=== PATIENT | female | born 1965 | race Caucasian/White ===

== ENCOUNTER 2016-10-10 10:33 | Observation (INO) | payer BC ==
[2016-10-10] MEDS ORDERED: ASPIRIN 81 MG TABLET, CHEWABLE PO ONE (10:48)
--- NOTE | 2016-10-10 10:48 | ER Document Report ---
ED Medical Screen (RME) - General Chief Complaint: Chest Pain > 30 Stated Complaint: SHOULDER PAIN Time seen by provider: 10:45 Mode of Arrival: Ambulatory Information source: Patient Notes: 51-year-old smoker female complaining of weakness, chest and left neck and arm tightness since she woke up. History of borderline diabetes, hypertension, hyper lipidemia. Strong family history of coronary artery disease and a brother had quadruple bypass at age 52. - Related Data Allergies/Adverse Reactions: No Known Allergies Allergy (Verified 10/10/16 10:45) Past Medical History Endocrine Medical History: Reports: Hx Diabetes Mellitus Type 2 - borderline Past Surgical History: Reports: Hx Tubal Ligation
[2016-10-10] MEDS ORDERED: ASPIRIN 81 MG TABLET, CHEWABLE ONE (10:50)
[2016-10-10 11:36] LABS: ABSOLUTE EOSINOPHILS # (AUTO) 0.1 10^3/uL (0.0-0.6); ABSOLUTE LYMPHOCYTES (AUTO) 2.3 10^3/uL (0.5-4.7); ABSOLUTE MONOCYTES (AUTO) 0.7 10^3/uL (0.1-1.4); ABSOLUTE NEUT (AUTO) 3.7 10^3/uL (1.7-8.2); BASOPHILS % (AUTO) 0.7 % (0-2); EOSINOPHILS % (AUTO) 1.6 % (0-6); HEMATOCRIT 45.7 % (36.0-47.0); HEMOGLOBIN 14.9 g/dL (12.0-15.5); LYMPHOCYTES % (AUTO) 33.6 % (13-45); MEAN CORPUSCULAR HEMOGLOBIN 30.5 pg (27.0-33.4); MEAN CORPUSCULAR HGB CONC 32.6 g/dL (32.0-36.0); MEAN CORPUSCULAR VOLUME 94 fl (80-97); MONOCYTES % (AUTO) 9.5 % (3-13); RED BLOOD COUNT 4.88 10^6/uL (3.72-5.28); SEGMENTED NEUTROPHILS % (AUTO) 54.6 % (42-78); WHITE BLOOD COUNT 6.9 10^3/uL (4.0-10.5)
[2016-10-10 11:57] LABS: ALANINE AMINOTRANSFERASE 109 U/L (9-52); ALBUMIN 4.4 g/dL (3.5-5.0); ALKALINE PHOSPHATASE 89 U/L (38-126); ANION GAP 15 (5-19); ASPARTATE AMINO TRANSFERASE 90 U/L (14-36); BILIRUBIN,TOTAL 0.6 mg/dL (0.2-1.3); BLOOD UREA NITROGEN 15 mg/dL (7-20); CALCIUM 9.8 mg/dL (8.4-10.2); CARBON DIOXIDE 27 mmol/L (22-30); CHLORIDE 101 mmol/L (98-107); CREATINE KINASE 139 U/L (30-135); CREATININE RESULT 0.65 mg/dL (0.52-1.25); GLUCOSE 147 mg/dL (75-110); POTASSIUM 3.8 mmol/L (3.6-5.0); SODIUM 142.7 mmol/L (137-145); TOTAL PROTEIN 7.7 g/dL (6.3-8.2)
[2016-10-10 12:08] LABS: CREATINE KINASE MB 2.75 ng/mL (<4.55)
[2016-10-10 12:10] LABS: TROPONIN I < 0.012 ng/mL
--- NOTE | 2016-10-10 13:05 | ER Document Report ---
ED Cardiac - General Chief Complaint: Chest Pain > 30 Stated Complaint: SHOULDER PAIN Time seen by provider: 12:50 Mode of Arrival: Ambulatory Notes: Patient is a 51-year-old female presents emergency department with complaints of chest tightness, shortness of breath, nausea, lightheadedness, and general malaise. Symptoms started around 9 or 10:00 this morning. Symptoms have been intermittent. She states she feels a tightness around her chest like her bra was too tight. She states that she has changed her bra twice states this has not made a difference. She states she thinks she is having a panic attack but denies having increased anxiety before onset of symptoms. She does note a strong family history for premature heart disease. She has not had cardiac evaluation previously. She was previously diagnosed with high blood pressure but states that after taking the medication for one month, she did not tolerate the side effects and told her primary care doctor that she was not going to take it anymore. She denies any exacerbating or alleviating factors for her symptoms. - Related Data Allergies/Adverse Reactions: No Known Allergies Allergy (Verified 10/10/16 10:45) Home Medications: Current Home Medications Fluoxetine HCl [Prozac 20 mg Capsule] 20 mg PO ASDIR PRN 10/10/16 [History] Past Medical History - General Information source: Patient - Social History Smoking Status: Current Every Day Smoker Chew tobacco use (# tins/day): No Frequency of alcohol use: None Drug Abuse: None Family History: CAD, Other - son -Schizophrenia Patient has suicidal ideation: No Patient has homicidal ideation: No Endocrine Medical History: Reports: Hx Diabetes Mellitus Type 2 - borderline Renal/ Medical History: Denies: Hx Peritoneal Dialysis Past Surgical History: Reports: Hx Tubal Ligation - Immunizations Hx Diphtheria, Pertussis, Tetanus Vaccination: No Review of Systems - Review of Systems Constitutional: Malaise. denies: Fever EENT: denies: Nose congestion Cardiovascular: Chest pain Respiratory: Cough, Short of breath Gastrointestinal: Nausea. denies: Abdominal pain, Diarrhea Genitourinary: denies: Dysuria Musculoskeletal: denies: Back pain Skin: denies: Rash Neurological/Psychological: denies: Headaches -: Yes All other systems reviewed and negative Physical Exam - Vital signs Vitals: Temp Pulse Resp BP Pulse Ox 98.3 F 85 16 149/88 H 96 10/10/16 10:45 10/10/16 10:45 10/10/16 10:45 10/10/16 10:45 10/10/16 10:45 - Notes Notes: PHYSICAL EXAMINATION: GENERAL: Well-appearing, well-nourished and in no acute distress. HEAD: Atraumatic, normocephalic. EYES: sclera anicteric, conjunctiva are normal. ENT: Moist mucous membranes. NECK: supple LUNGS: Breath sounds clear to auscultation bilaterally and equal. No wheezes rales or rhonchi. HEART: Regular rate and rhythm without murmurs. No chest wall tenderness to palpation ABDOMEN: Soft, nontender, normoactive bowel sounds. No guarding, no rebound. No masses appreciated. EXTREMITIES: Normal range of motion, no pitting or edema. No cyanosis. No calf tenderness to palpation. 2+ pulses. NEUROLOGICAL: Cranial nerves grossly intact. Normal speech, Normal strength PSYCH: Normal mood, normal affect. SKIN: Warm, Dry, no rashes or lesions noted. Course - Re-evaluation Re-evalutation: 10/10/16 Patient presents with multiple complaints including chest tightness. EKG does not show evidence of acute ischemia. She does have a family history of premature heart disease and has not had heart attack evaluation previously herself. Given her complaints of chest tightness, shortness of breath, nausea, and lightheadedness, do think she warrants hospitalization for further evaluation. Case is discussed with Dr. Hutchison and Dr. Elizabeth, hospitalists, who accepted patient to her service. Patient and family verbalized understanding of plan and are in agreement. - Vital Signs Vital signs: Temp Pulse Resp BP Pulse Ox 97.8 F 57 L 16 110/61 98 10/10/16 17:16 10/10/16 17:16 10/10/16 17:16 10/10/16 17:16 10/10/16 17:16 - Laboratory Result Diagrams: 10/10/16 11:15 10/10/16 11:15 Laboratory results interpreted by me: 10/10/16 11:15 Glucose 147 H AST 90 H ALT 109 H Creatine Kinase 139 H - Diagnostic Test Radiology reviewed: Image reviewed, Reports reviewed - EKG Interpretation by Me EKG shows normal: Sinus rhythm, [place], Intervals, QRS Complexes, ST-T Waves Rate: Normal Rhythm: NSR When compared to previous EKG there are: No significant change Discharge - Discharge Clinical Impression: Tobacco abuse Chest pain Qualifiers: Chest pain type: unspecified Qualified Code(s): R07.9 - Chest pain, unspecified Disposition: ADMITTED OBSERVATION Admitting Provider: Hospitalist Unit Admitted: Telemetry
[2016-10-10] MEDS ORDERED: ENOXAPARIN SODIUM INJ 40 MG/0.4 ML DISP.SYRIN SUBCUT ONE ×2 (15:00→20:45)
--- NOTE | 2016-10-10 15:33 | PDOC H&P ---
History of Present Illness Admission Date/PCP: [facility] 10/10/16 Patient complains of: Chest pain History of Present Illness: CAROLINE OTT is a 51 year old female Presented to the ED with a history of chest pain Chest pain was precordial ,intermittent, pressure-like not associated with exertion The pain started this morning; when interviewed patient states she's pain-free Patient also states that she was a little confused when she got the pain She had no fever no chills no cough no nausea vomiting She was brought to the ED for evaluation EKG was unremarkable, troponin was normal; She was subsequently admitted under hospitalist service for observation Past Medical History Cardiac Medical History: Reports: None Endocrine Medical History: Reports: Diabetes Mellitus Type 2 - borderline Past Surgical History Past Surgical History: Reports: Tubal Ligation Social History Smoking Status: Current Every Day Smoker Frequency of Alcohol Use: Social Amount of Alcoholic Beverages Per Day: 1-3 Hx Recreational Drug Use: No Family History Family History: CAD, Other - son -Schizophrenia Parental Family History Reviewed: Yes - coronary artery disease Children Family History Reviewed: No Sibling(s) Family History Reviewed.: Yes - Coronary artery disease Medication/Allergy Home Medications: Fluoxetine HCl [Prozac 20 mg Capsule] 20 mg PO ASDIR PRN 10/10/16 Allergies/Adverse Reactions: No Known Allergies Allergy (Verified 10/10/16 10:45) Review of Systems Constitutional: ABSENT: chills, fever(s), headache(s), weight gain, weight loss Eyes: ABSENT: visual disturbances Ears: ABSENT: hearing changes Cardiovascular: PRESENT: as per HPI, chest pain, dyspnea on exertion. ABSENT: edema, orthropnea, palpitations Respiratory: ABSENT: cough, hemoptysis Gastrointestinal: ABSENT: abdominal pain, constipation, diarrhea, hematemesis, hematochezia, nausea, vomiting Genitourinary: ABSENT: dysuria, hematuria Musculoskeletal: ABSENT: joint swelling Integumentary: ABSENT: rash, wounds Neurological: ABSENT: abnormal gait, abnormal speech, confusion, dizziness, focal weakness, syncope Psychiatric: ABSENT: anxiety, depression, homidical ideation, suicidal ideation Endocrine: ABSENT: cold intolerance, heat intolerance, polydipsia, polyuria Hematologic/Lymphatic: ABSENT: easy bleeding, easy bruising Physical Exam Vital Signs: Temp Pulse Resp BP Pulse Ox 98.3 F 81 17 123/70 96 10/10/16 10:50 10/10/16 11:10 10/10/16 12:00 10/10/16 11:10 10/10/16 12:00 Intake & Output 10/09/16 10/10/16 10/11/16 00:59 00:59 00:59 Weight 72.7 kg General appearance: PRESENT: no acute distress, well-developed, well-nourished Head exam: PRESENT: atraumatic, normocephalic Eye exam: PRESENT: conjunctiva pink, EOMI, PERRLA. ABSENT: scleral icterus Ear exam: PRESENT: normal external ear exam Mouth exam: PRESENT: moist, tongue midline Neck exam: ABSENT: carotid bruit, JVD, lymphadenopathy, thyromegaly Respiratory exam: PRESENT: clear to auscultation yana. ABSENT: rales, rhonchi, wheezes Cardiovascular exam: PRESENT: RRR. ABSENT: diastolic murmur, rubs, systolic murmur Pulses: PRESENT: normal dorsalis pedis pul Vascular exam: PRESENT: normal capillary refill GI/Abdominal exam: PRESENT: normal bowel sounds, soft. ABSENT: distended, guarding, mass, organolmegaly, rebound, tenderness Rectal exam: PRESENT: deferred Extremities exam: PRESENT: full ROM. ABSENT: calf tenderness, clubbing, pedal edema Neurological exam: PRESENT: alert, awake, oriented to person, oriented to place , oriented to time, oriented to situation, CN II-XII grossly intact. ABSENT: motor sensory deficit Psychiatric exam: PRESENT: appropriate affect, normal mood. ABSENT: homicidal ideation, suicidal ideation Skin exam: PRESENT: dry, intact, warm. ABSENT: cyanosis, rash Results Laboratory Results: 10/10/16 11:15 10/10/16 11:15 10/10/16 10/10/16 11:15 11:15 WBC 6.9 RBC 4.88 Hgb 14.9 Hct 45.7 MCV 94 MCH 30.5 MCHC 32.6 RDW 13.0 Plt Count 284 Seg Neutrophils % 54.6 Lymphocytes % 33.6 Monocytes % 9.5 Eosinophils % 1.6 Basophils % 0.7 Absolute Neutrophils 3.7 Absolute Lymphocytes 2.3 Absolute Monocytes 0.7 Absolute Eosinophils 0.1 Absolute Basophils 0.0 Sodium 142.7 Potassium 3.8 Chloride 101 Carbon Dioxide 27 Anion Gap 15 BUN 15 Creatinine 0.65 Est GFR ( Amer) > 60 Est GFR (Non-Af Amer) > 60 Glucose 147 H Calcium 9.8 Total Bilirubin 0.6 AST 90 H ALT 109 H Alkaline Phosphatase 89 Total Protein 7.7 Albumin 4.4 10/10/16 10/10/16 11:15 11:15 Creatine Kinase 139 H CK-MB (CK-2) 2.75 Troponin I < 0.012 Impressions: Chest X-Ray 10/10/16 10:48 IMPRESSION: NO ACUTE RADIOGRAPHIC FINDING IN THE CHEST. Assessment & Plan - Diagnosis (1) Chest pain Qualifiers: Chest pain type: unspecified Qualified Code(s): R07.9 - Chest pain, unspecified Is this a current diagnosis for this admission?: YesPlan: Patient has a strong family history for coronary artery disease She is a smoker We will monitor her overnight, obtain serial EKGs and cardiac enzymes Patient will be scheduled for stress testing as an outpatient next week Fasting lipids and TSH hemoglobin A1c will be obtained patient will be started tonight on Lipitor and aspirin We will schedule the patient for CTA of the chest to exclude pulmonary embolism (2) Tobacco abuse Is this a current diagnosis for this admission?: YesPlan: We will order a nicotine patch (3) Elevated LFTs Is this a current diagnosis for this admission?: YesPlan: We will obtain a in ultrasound of the gallbladder in a.m. This could be an atypical presentation of gallbladder disease - Time Time Spent: 50 to 70 Minutes
--- NOTE | 2016-10-10 16:41 | EKG REPORT ---
SEVERITY:- ABNORMAL ECG - SINUS RHYTHM PROBABLE LVH WITH SECONDARY REPOL ABNRM : Confirmed by: Wild Meza MD 10-Oct-2016 16:41:16
[2016-10-10] MEDS ORDERED: ATORVASTATIN CALCIUM 20 MG TABLET PO SCH (22:00)
[2016-10-11 07:13] LABS: ALANINE AMINOTRANSFERASE 106 U/L (9-52); ALBUMIN 4.8 g/dL (3.5-5.0); ALKALINE PHOSPHATASE 77 U/L (38-126); ANION GAP 12 (5-19); ASPARTATE AMINO TRANSFERASE 64 U/L (14-36); BILIRUBIN,TOTAL 0.7 mg/dL (0.2-1.3); BLOOD UREA NITROGEN 13 mg/dL (7-20); CALCIUM 10.2 mg/dL (8.4-10.2); CARBON DIOXIDE 27 mmol/L (22-30); CHLORIDE 105 mmol/L (98-107); CHOLESTEROL 298.16 mg/dL (0-200); CREATININE RESULT 0.64 mg/dL (0.52-1.25); Direct HDL 49 mg/dL (>40); GLUCOSE 98 mg/dL (75-110); POTASSIUM 4.7 mmol/L (3.6-5.0); TOTAL PROTEIN 7.5 g/dL (6.3-8.2); TRIGLYCERIDES 251 mg/dL (<150)
[2016-10-11 07:24] LABS: DIRECT LDL 234 mg/dL (<100)
[2016-10-11 07:27] LABS: VLDL CHOLESTEROL 50.2 mg/dL (10-31)
[2016-10-11] MEDS ORDERED: ENOXAPARIN SODIUM INJ 40 MG/0.4 ML DISP.SYRIN SUBCUT SCH (08:00)
[2016-10-11] MEDS ORDERED: ASPIRIN 325 MG TABLET, ENT COATED PO SCH (10:00)
--- NOTE | 2016-10-11 10:07 | EKG REPORT ---
SEVERITY:- NORMAL ECG - SINUS RHYTHM : Confirmed by: Wild Meza MD 11-Oct-2016 10:06:22
[2016-10-11] MEDS ORDERED: CLINDAMYCIN HCL 150 MG CAPSULE PO ONE (10:30)
[2016-10-11 10:43] LABS: FREE T3 3.71 pg/mL (2.77-5.27)
[2016-10-11 12:17] VITALS: BP 120/77
--- NOTE | 2016-10-11 13:29 | PDOC DISCHARGE SUMMARY ---
General - Admit/Disc Date/PCP Admission Date/Primary Care Provider: 10/10/16 14:13 Discharge Date: 10/11/16 - Discharge Diagnosis (1) Chest pain Is this a current diagnosis for this admission?: YesSummary: intermittent Patient was admitted overnite , monitered no arrhythmias, troponins were normal range EKG NSR CTA chest was negative for PE (2) Tobacco abuse Is this a current diagnosis for this admission?: Yes (3) Fatty liver disease, nonalcoholic Is this a current diagnosis for this admission?: YesSummary: with mildly elevated LFT'S advised lowfat diet Vitamin E 400 units daily (4) Mediastinal mass Is this a current diagnosis for this admission?: YesSummary: seen on CTA chest described as peripherally calcified, well circumscribed located in anterior mediastinum differential diagnosis : teratoma, Thymoma , Thymic Ca recommend PET CT Case was discussed with Dr Carvajal cardiothoracic surgeon at [facility] see patient in office and complete wup as outpatient (5) Hyperlipidemia Is this a current diagnosis for this admission?: YesSummary: initiated lipitor and [id number] acid - Additional Information Resuscitation Status: Full Code Discharge Diet: Cardiac, Other (Comments) - strict low fat diet Discharge Activity: Activity As Tolerated Home Medications: Acidoph/L.bulg/Bif.b/S.thermop [Bacid Caplet] 1 each PO BID #20 tablet 10/11/16 Atorvastatin Calcium [Lipitor 20 mg Tablet] 20 mg PO QHS #30 tablet 10/11/16 Clindamycin HCl [Cleocin 300 mg Capsule] 300 mg PO TID #30 capsule 10/11/16 Fluoxetine HCl [Prozac 20 mg Capsule] 20 mg PO DAILY #30 10/11/16 [place]-3S/Dha/Epa/Fish Oil [Fish Oil [place]-3 Softgel] 1 each PO BID #60 capsule. 10/11/16 Vitamin E 400 unit PO DAILY #30 capsule 10/11/16 History of Present Illness Patient complains of: chest pain History of Present Illness: CAROLINE OTT is a 51 year old female Presented to the ED with a history of chest pain Chest pain was precordial ,intermittent, pressure-like not associated with exertion The pain started this morning; when interviewed patient states she's pain-free Patient also states that she was a little confused when she got the pain She had no fever no chills no cough no nausea vomiting She was brought to the ED for evaluation EKG was unremarkable, troponin was normal; She was subsequently admitted under hospitalist service for observation Hospital Course Hospital Course: see above Physical Exam Vital Signs: Temp Pulse Resp BP Pulse Ox 97.9 F 65 18 120/77 95 10/11/16 12:12 10/11/16 12:12 10/11/16 12:12 10/11/16 12:12 10/11/16 12:12 Intake & Output 10/10/16 10/11/16 10/12/16 00:59 00:59 00:59 Intake Total 0 Balance 0 Weight 72.7 kg General appearance: PRESENT: no acute distress, well-developed, well-nourished Head exam: PRESENT: atraumatic, normocephalic Eye exam: PRESENT: conjunctiva pink, EOMI, PERRLA. ABSENT: scleral icterus Ear exam: PRESENT: normal external ear exam Mouth exam: PRESENT: moist, tongue midline Neck exam: ABSENT: carotid bruit, JVD, lymphadenopathy, thyromegaly Respiratory exam: PRESENT: clear to auscultation yana. ABSENT: rales, rhonchi, wheezes Cardiovascular exam: PRESENT: RRR. ABSENT: diastolic murmur, rubs, systolic murmur Pulses: PRESENT: normal dorsalis pedis pul Vascular exam: PRESENT: normal capillary refill GI/Abdominal exam: PRESENT: normal bowel sounds, soft. ABSENT: distended, guarding, mass, organolmegaly, rebound, tenderness Rectal exam: PRESENT: deferred Extremities exam: PRESENT: full ROM. ABSENT: calf tenderness, clubbing, pedal edema Neurological exam: PRESENT: alert, awake, oriented to person, oriented to place , oriented to time, oriented to situation, CN II-XII grossly intact. ABSENT: motor sensory deficit Psychiatric exam: PRESENT: appropriate affect, normal mood. ABSENT: homicidal ideation, suicidal ideation Skin exam: PRESENT: dry, intact, warm. ABSENT: cyanosis, rash Results Laboratory Results: 10/11/16 05:45 10/11/16 10/11/16 10/11/16 05:45 05:45 05:45 Sodium 144.0 Potassium 4.7 Chloride 105 Carbon Dioxide 27 Anion Gap 12 BUN 13 Creatinine 0.64 Est GFR ( Amer) > 60 Est GFR (Non-Af Amer) > 60 Glucose 98 Calcium 10.2 Total Bilirubin 0.7 AST 64 H ALT 106 H Alkaline Phosphatase 77 Total Protein 7.5 Albumin 4.8 Triglycerides 251 H Cholesterol 298.16 H LDL Cholesterol Direct 234 H VLDL Cholesterol 50.2 H HDL Cholesterol 49 TSH 4.95 H Free T4 0.80 Free T3 pg/mL 3.71 10/10/16 18:35 Troponin I < 0.012 10/11/16 10/11/16 10/11/16 05:45 05:45 05:45 Hemoglobin A1c % 6.2 H Triglycerides 251 H Cholesterol 298.16 H LDL Cholesterol Direct 234 H VLDL Cholesterol 50.2 H TSH 4.95 H Free T4 Free T3 pg/mL 10/11/16 05:45 Hemoglobin A1c % Triglycerides Cholesterol LDL Cholesterol Direct VLDL Cholesterol TSH Free T4 0.80 Free T3 pg/mL 3.71 Impressions: Chest X-Ray 10/10/16 10:48 IMPRESSION: NO ACUTE RADIOGRAPHIC FINDING IN THE CHEST. Chest/Abdomen CTA 10/10/16 15:33 IMPRESSION: No pulmonary emboli. Mild right basilar atelectasis. Peripherally calcified, well-circumscribed, heterogeneous mass with soft tissue and fat attenuation located in the anterior mediastinum, differential considerations include teratoma, thymic carcinoma, thymoma. Correlation with laboratory values and PET/CT recommended. Abdomen Ultrasound 10/11/16 06:00 IMPRESSION: 1. Hepatic steatosis. No focal liver lesion. 2. Otherwise unremarkable right upper quadrant ultrasound. Plan Discharge Plan: referred to Cardiology Dr Ledesma for stress test referred to Dr Carvajal Cardiothoracic surgery for evaluation mediastinal mass low fat diet Time Spent: Greater than 30 Minutes
== END 2016-10-11 12:30 | disposition home or self-care (01) ==
LOC: ER 10:33 → EH 14:13 → 4N 17:09
PROVIDERS: ADMIT Emergency Medicine; ATTEND Emergency Medicine
DX: R07.9 Chest pain, unspecified (principal); Z72.0 Tobacco use; K76.0 Fatty (change of) liver, not elsewhere classified; R22.2 Localized swelling, mass and lump, trunk; E78.5 Hyperlipidemia, unspecified; R73.03 Prediabetes; Z82.49 Family history of ischemic heart disease and other diseases of the circulatory system; R79.89 Other specified abnormal findings of blood chemistry
CPT/HCPCS: 93005 ×2; 99285; 36415 ×2; 84439; 82553; 82962 ×2; 82550; 84443; 85025; 80053 ×2; 84484; 84481; 83036; 80061; 71010; 76705; 71275; 93010 ×2; G0378 ×3; J1650

== ENCOUNTER 2018-11-29 13:16 | Emergency (ER) | payer BC ==
--- NOTE | 2018-11-29 15:32 | ER Document Report ---
ED Medical Screen (RME) - General Chief Complaint: Numbness of Arm Stated Complaint: PAIN IN LEFT ARM Time Seen by Provider: 11/29/18 15:23 Primary Care Provider: SEDRICK CHANDRA NP-C [Primary Care Provider] - Follow up as needed Mode of Arrival: Ambulatory Information source: Patient Notes: 53-year-old female presents with left arm pain, chest pain and an episode of shortness of breath with exertion. 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 She does smoke cigarettes. I have greeted and performed a rapid initial assessment of this patient. A comprehensive ED assessment and evaluation of the patient, analysis of test results and completion of medical decision making process we will be contacted by additional ED providers. PHYSICAL EXAMINATION: Vital signs reviewed GENERAL: Well-appearing, well-nourished and in no acute distress. LUNGS: No respiratory distress Musculoskeletal: Normal range of motion NEUROLOGICAL: Normal speech, normal gait. PSYCH: Normal mood, normal affect. SKIN: Warm, Dry, normal turgor, no rashes or lesions noted. TRAVEL OUTSIDE OF THE [place] IN LAST 30 DAYS: No - HPI Onset: Just prior to arrival Onset/Duration: Gradual Quality of pain: Achy Associated Symptoms: Chest pain, Shortness of breath, Other - Left arm pain and numbness Exacerbated by: Denies Relieved by: Denies Similar symptoms previously: No Recently seen / treated by doctor: No - Related Data Smoking: Cigarettes Frequency of alcohol use: None Drug Abuse: None Allergies/Adverse Reactions: No Known Allergies Allergy (Verified 11/29/18 13:17) Past Medical History Endocrine Medical History: Reports: Hx Diabetes Mellitus Type 2 - borderline Renal/ Medical History: Denies: Hx Peritoneal Dialysis Psychiatric Medical History: Reports: Hx Depression Past Surgical History: Reports: Hx Tubal Ligation - Immunizations Hx Diphtheria, Pertussis, Tetanus Vaccination: No Physical Exam - Vital signs Vitals: Temp Pulse Resp BP Pulse Ox 98.0 F 70 16 136/91 H 99 11/29/18 13:40 11/29/18 13:40 11/29/18 13:40 11/29/18 13:40 11/29/18 13:40 Course - Vital Signs Vital signs: Temp Pulse Resp BP Pulse Ox 98.0 F 70 16 136/91 H 99 11/29/18 13:40 11/29/18 13:40 11/29/18 13:40 11/29/18 13:40 11/29/18 13:40 Doctor's Discharge - Discharge Referrals: SEDRICK CHANDRA, [employer] [Primary Care Provider] - Follow up as needed
[2018-11-29] MEDS ORDERED: ASPIRIN 81 MG TABLET, CHEWABLE PO ONE (15:34)
--- NOTE | 2018-11-29 16:29 | RADIOLOGY REPORT (SQ) ---
EXAM DESCRIPTION: CHEST 2 VIEWS COMPLETED DATE/TIME: 11/29/2018 4:07 pm REASON FOR STUDY: Chest pain, left arm pain COMPARISON: None. EXAM PARAMETERS: NUMBER OF VIEWS: two views TECHNIQUE: Digital Frontal and Lateral radiographic views of the chest acquired. RADIATION DOSE: NA LIMITATIONS: none FINDINGS: LUNGS AND PLEURA: No opacities, masses or pneumothorax. No pleural effusion. MEDIASTINUM AND HILAR STRUCTURES: No masses or contour abnormalities. HEART AND VASCULAR STRUCTURES: Heart normal size. No evidence for failure. BONES: No acute findings. HARDWARE: Prior anterior median sternotomy. OTHER: No other significant finding. IMPRESSION: 1. NO ACUTE RADIOGRAPHIC FINDING IN THE CHEST. TECHNICAL DOCUMENTATION: JOB ID: [id number] [employer]- All Rights Reserved Reading location - IP/workstation name: [email or web address]
--- NOTE | 2018-11-29 16:44 | RADIOLOGY REPORT (SQ) ---
EXAM DESCRIPTION: CERV SP 4 OR 5 VIEWS COMPLETED DATE/TIME: 11/29/2018 4:08 pm REASON FOR STUDY: Chest pain, left arm pain COMPARISON: None. NUMBER OF VIEWS: Five views. TECHNIQUE: AP, lateral, obliques and odontoid radiographic images acquired of the cervical spine. LIMITATIONS: None. FINDINGS: MINERALIZATION: Normal. ALIGNMENT: Loss of the normal lordotic curvature likely secondary to muscle spasm. VERTEBRAE: Vertebral bodies of normal height. DISCS: Slight disc space narrowing at C6-C7 with small anterior osteophytes. FORAMINA: Slight to mild foraminal narrowing on the left at C7-T1. Small posterior osteophytes. LATERAL AND POSTERIOR ELEMENTS: Facets, lateral masses and spinous processes without significant find ings. HARDWARE: None in the spine. SOFT TISSUES: No masses or calcifications. Lung apices clear. OTHER: Partially visualized anterior median sternotomy. Short bilateral cervical ribs versus mildly prominent transverse processes. IMPRESSION: 1. Loss of the normal lordotic curvature likely secondary to muscle spasm. 2. Degenerative slight disc space narrowing at C6-C7. 3. No acute osseous findings. TECHNICAL DOCUMENTATION: JOB ID: [id number] [employer]- All Rights Reserved Reading location - IP/workstation name: [email or web address]
[2018-11-29 16:53] LABS: ABSOLUTE BASOPHILS # (AUTO) 0.1 10^3/uL (0.0-0.2); ABSOLUTE EOSINOPHILS # (AUTO) 0.1 10^3/uL (0.0-0.6); ABSOLUTE LYMPHOCYTES (AUTO) 3.4 10^3/uL (0.5-4.7); ABSOLUTE MONOCYTES (AUTO) 0.7 10^3/uL (0.1-1.4); ABSOLUTE NEUT (AUTO) 4.3 10^3/uL (1.7-8.2); BASOPHILS % (AUTO) 0.7 % (0-2); HEMATOCRIT 44.2 % (36.0-47.0); HEMOGLOBIN 15.4 g/dL (12.0-15.5); MEAN CORPUSCULAR HEMOGLOBIN 32.1 pg (27.0-33.4); MEAN CORPUSCULAR HGB CONC 34.8 g/dL (32.0-36.0); MEAN CORPUSCULAR VOLUME 92 fl (80-97); MONOCYTES % (AUTO) 8.7 % (3-13); PLATELET COUNT 368 10^3/uL (150-450); RED BLOOD COUNT 4.79 10^6/uL (3.72-5.28); RED CELL DISTRIBUTION WIDTH 12.9 % (11.5-14.0); SEGMENTED NEUTROPHILS % (AUTO) 49.6 % (42-78); TOTAL CELLS COUNTED % (AUTO) 100 %; WHITE BLOOD COUNT 8.6 10^3/uL (4.0-10.5)
[2018-11-29 17:06] LABS: ALANINE AMINOTRANSFERASE 33 U/L (9-52); ALBUMIN 5.2 g/dL (3.5-5.0); ALKALINE PHOSPHATASE 73 U/L (38-126); ANION GAP 9 (5-19); ASPARTATE AMINO TRANSFERASE 32 U/L (14-36); BILIRUBIN,DIRECT 0.2 mg/dL (0.0-0.4); BILIRUBIN,TOTAL 0.6 mg/dL (0.2-1.3); BLOOD UREA NITROGEN 14 mg/dL (7-20); CALCIUM 10.3 mg/dL (8.4-10.2); CARBON DIOXIDE 31 mmol/L (22-30); CHLORIDE 101 mmol/L (98-107); CREATINE KINASE 181 U/L (30-135); GLUCOSE 93 mg/dL (75-110); SODIUM 140.6 mmol/L (137-145); TOTAL PROTEIN 8.1 g/dL (6.3-8.2)
[2018-11-29 17:22] LABS: CREATINE KINASE MB 3.11 ng/mL (<4.55)
[2018-11-29 17:28] LABS: TROPONIN I < 0.012 ng/mL
--- NOTE | 2018-11-29 18:23 | ER Document Report ---
ED General - General Chief Complaint: Numbness of Arm Stated Complaint: PAIN IN LEFT ARM Time Seen by Provider: 11/29/18 18:23 Primary Care Provider: SEDRICK CHANDRA NP-C [NURSE PRACTITIONER] - Follow up as needed HERB OVERTON MD [ACTIVE STAFF] - Follow up as needed Mode of Arrival: Ambulatory Information source: Patient Notes: HISTORY OF PRESENT ILLNESS: Patient is a 53-year-old female with a past medical history of hypertension and diet-controlled hyperlipidemia who presents with intermittent tingling/numbness/cold sensation in the left hand that extends up to the left shoulder. Location: Left arm Onset: Sudden Alleviation: None Provocation: Movement of the left arm Quality: Numbness/tingling Radiation: Left shoulder and anterior chest wall Severity: Mild to moderate Timing: Intermittent History of CAD: None Associated symptoms: No fever chills, no cough or congestion, no shortness of breath, no injury REVIEW OF SYSTEMS: CONSTITUTIONAL : Denies fever or chills, no sweats. Denies recent illness. EENT: Denies eye, ear, throat, or mouth pain or symptoms. Denies nasal or sinus congestion. CARDIOVASCULAR: Positive for chest pain. Denies swelling of the legs. RESPIRATORY: Denies cough, cold, or chest congestion. Denies shortness of breath or difficulty breathing. Denies wheezing. GASTROINTESTINAL: Denies abdominal pain. Denies nausea, vomiting, or diarrhea. Denies constipation. GENITOURINARY: Denies difficulty urinating, painful urination, burning, frequency, or blood in urine. FEMALE GENITOURINARY: Denies vaginal bleeding, abnormal or irregular periods. MUSCULOSKELETAL: Positive for left arm numbness/tingling. Denies neck or back pain or joint pain or swelling. SKIN: Denies rash or skin lesions. HEMATOLOGIC : Denies easy bruising or bleeding. LYMPHATIC: Denies swollen, enlarged glands. NEUROLOGICAL: Denies altered mental status or loss of consciousness. Denies headache. Denies weakness or paralysis or loss of use of either side. Denies problems with gait or speech. Denies sensory or motor loss. PSYCHIATRIC: Denies anxiety or stress or depression. All other systems reviewed and negative. PHYSICAL EXAMINATION: GENERAL: Well-appearing, well-nourished and in no acute distress. HEAD: Atraumatic, normocephalic. No scalp deformity, depression, or crepitance. EYES: Pupils are 3 mm and equal/round/reactive to light, extraocular movements intact, sclera anicteric, conjunctiva are normal. ENT: Nares patent bilaterally, oropharynx. Moist mucous membranes. No tonsil hypertrophy. NECK: Normal range of motion, supple without lymphadenopathy. LUNGS: Breath sounds present, equal, and clear to auscultation bilaterally. No wheezes, rales, or rhonchi. HEART: Regular rate and rhythm without murmurs, rubs, or gallops. 2+ peripheral pulses. Normal capillary refill. ABDOMEN: Soft, nontender, nondistended. Normoactive bowel sounds. No guarding, no rebound. No masses appreciated. BACK: Normal contour, no midline tenderness. Rectal exam deferred. GENITAL/PELVIC: Deferred. EXTREMITIES: Normal range of motion, no pitting or edema. No cyanosis. NEUROLOGICAL: No focal neurological deficits. Moves all extremities spontaneously and on command. PSYCH: Normal mood, normal affect. No suicidal thoughts/ideations. No homocidal thoughts/ideations. No hallucinations. SKIN: Warm, dry, normal turgor, no rashes or lesions noted. ASSESSMENT AND PLAN: This patient is a 53-year-old female who presents with left arm numbness and tingling that is most likely consistent with peripheral neuropathy such as brachial plexopathy, doubt chest pain is cardiac in origin. 1. Will obtain labs with 2 sets of cardiac enzymes along with chest x-ray. 2. Will give oral gabapentin and reassess. TRAVEL OUTSIDE OF THE [place] IN LAST 30 DAYS: No - Related Data Allergies/Adverse Reactions: No Known Allergies Allergy (Verified 11/29/18 13:17) Past Medical History - General Information source: Patient - Social History Smoking Status: Current Every Day Smoker Chew tobacco use (# tins/day): No Frequency of alcohol use: None Drug Abuse: None Lives with: Family Family History: Reviewed & Not Pertinent, CAD, Other - son -Schizophrenia Patient has suicidal ideation: No Patient has homicidal ideation: No - Past Medical History Cardiac Medical History: Reports: Hx Hypercholesterolemia, Hx Hypertension Pulmonary Medical History: Reports: None EENT Medical History: Reports: None Neurological Medical History: Reports: None Endocrine Medical History: Reports: Hx Diabetes Mellitus Type 2 - borderline Renal/ Medical History: Reports: None. Denies: Hx Peritoneal Dialysis Malignancy Medical History: Reports: None GI Medical History: Reports: None Musculoskeletal Medical History: Reports None Skin Medical History: Reports None Psychiatric Medical History: Reports: Hx Attention Deficit Hyperactivity Disorder, Hx Depression Traumatic Medical History: Reports: None Infectious Medical History: Reports: None Past Surgical History: Reports: Hx Open Heart Surgery, Hx Tubal Ligation - Immunizations Immunizations up to date: Yes Hx Diphtheria, Pertussis, Tetanus Vaccination: No History of Influenza Vaccine for 06/2017 - 11/2017 Season: Yes Physical Exam - Vital signs Vitals: Temp Pulse Resp BP Pulse Ox 98.0 F 70 16 136/91 H 99 11/29/18 13:40 11/29/18 13:40 11/29/18 13:40 11/29/18 13:40 11/29/18 13:40 Course - Re-evaluation Re-evalutation: 11/29/18 20:53 2 sets of cardiac enzymes are negative. 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 Patient will be discharged home with return precautions and follow-up. She voices both understanding and agreeing with the plan. - Vital Signs Vital signs: Temp Pulse Resp BP Pulse Ox 98.3 F 70 18 103/63 97 11/29/18 21:00 11/29/18 13:40 11/29/18 21:01 11/29/18 21:00 11/29/18 21:01 - Laboratory Result Diagrams: 11/29/18 16:16 11/29/18 16:16 Laboratory results interpreted by me: 11/29/18 16:16 Carbon Dioxide 31 H Calcium 10.3 H Creatine Kinase 181 H Albumin 5.2 H - Diagnostic Test Radiology reviewed: Image reviewed, Reports reviewed - EKG Interpretation by [facility] EKG shows normal: Sinus rhythm Rate: Normal Rhythm: No: NSR, SVT, Arrthymia, A.Fib, A.Flutter, with a 2:1 Block, V.Tach, Torsades, V. Fib, MAT, PVC's, APC's, Other Mimbres/QRS: No: Right axis deviation, Left axis deviation, RBBB, LBBB, IVCD, LAHB/LAFB, LPHB/LPFB, Bifasicular block Voltage: No: Increased voltage, Consistant with LVH, Decreased voltage, Throughout, Limb leads P Waves: No: OUMOU, LAE, Absent, AV Dissociation, Other Heart block present: No: 1st Degree, Mobitz 1, Mobitz 2, CHB (3rd degree block) When compared to previous EKG there are: Previous EKG unavailable Discharge - Discharge Clinical Impression: Brachial plexopathy Chest pain Qualifiers: Chest pain type: unspecified Qualified Code(s): R07.9 - Chest pain, unspecified Condition: Good Disposition: HOME, SELF-CARE Instructions: Chest Pain of Unclear Cause ([facility]), Neuropathy ([facility]) Additional Instructions: You have been evaluated in the Emergency Department for mild chest pain and numbness/tingling to her left arm that is most likely related to nerve related neuropathy. While here, you had blood work that was normal and it is now safe to be discharged home. Please follow-up with your primary physician and a assault amphibious vehicle officer as instructed to discuss having a stress test as an outpatient. Return to the Emergency Department if you experience worsening pain, difficulty breathing, or any other concerning symptoms. Prescriptions: Gabapentin [Neurontin 300 mg Capsule] 300 mg PO TID #90 cap Forms: Return to Work Referrals: SEDRICK CHANDRA NP-C [NURSE PRACTITIONER] - Follow up as needed HERB OVERTON MD [ACTIVE STAFF] - Follow up as needed Print Language: Moz[place]ican
--- NOTE | 2018-11-29 18:26 | EKG REPORT ---
SEVERITY:- NORMAL ECG - SINUS RHYTHM : Confirmed by: Wild Meza MD 29-Nov-2018 18:25:37
[2018-11-29] MEDS ORDERED: GABAPENTIN 300 MG CAPSULE PO ONE (19:23)
[2018-11-29 21:16] VITALS: BP 103/63
== END 2018-11-29 21:16 | disposition home or self-care (01) ==
LOC: ER 13:16
DX: G54.0 Brachial plexus disorders (principal); R07.9 Chest pain, unspecified; R20.0 Anesthesia of skin; E78.5 Hyperlipidemia, unspecified; M79.642 Pain in left hand; M25.512 Pain in left shoulder; F17.200 Nicotine dependence, unspecified, uncomplicated; E11.9 Type 2 diabetes mellitus without complications; I10 Essential (primary) hypertension
CPT/HCPCS: 36415; 71046; 72050; 80053; 82550; 82553; 84484; 85025; 93005; 93010; 99284